=== PATIENT | male | born 1980 | race Two or more races ===

== ENCOUNTER 2017-02-12 16:39 | Emergency (ER) | payer OTHER ==
[2017-02-12 17:27] VITALS: BP 158/93
--- NOTE | 2017-02-12 17:39 | XRAY Preliminary Report ---
Exam: XR Shoulder 3 View LT IMPRESSION: 1. No definite acute abnormality. 2. Mild a. C. Joint degenerative disease. [facility] SITE ID: [id number]
--- NOTE | 2017-02-12 17:42 | XRAY Report ---
EXAM: LEFT SHOULDER RADIOGRAPHY EXAM DATE: 02/12/2017 04:51 PM. CLINICAL HISTORY: Injury, limited rom. COMPARISON: None. TECHNIQUE: 3 views. FINDINGS: Bones: Normal. No fracture or bone lesion. Joints: The glenohumeral and acromioclavicular joints are normally aligned. Mild acromioclavicular aurora int degenerative disease.. Soft tissues: The visualized hemithorax is unremarkable. No soft tissue swelling. IMPRESSION: 1. No definite acute abnormality. 2. Mild a. C. Joint degenerative disease. [facility] Referring Provider Line: [phone] SITE ID: [id number]
[2017-02-12] MEDS ORDERED: DEXAMETHASONE 10 MG/ML VIAL PO STA (17:54)
--- NOTE | 2017-02-12 17:58 | ED Physician Documentation ---
PD HPI UPPER EXT INJURY - Stated complaint Stated Complaint: LT SHOULDER PX - Chief complaint Chief Complaint: Trauma Ext - History obtained from History obtained from: Patient, Family - History of Present Illness Location: Left, Shoulder Type of injury: Fall Where injury occurred: [place] Timing - onset: Today Timing - duration: Hours Timing - details: Abrupt onset, Still present Improved by: Rest, Immobilization Worsened by: Moving, Palpating Associated symptoms: No: Weakness, Numbness, Tingling Contributing factors: No: Anticoagulated Similar symptoms before: Has not had sx before Recently seen: Not recently seen - Additonal information Additional information: 36 y/o male was hiking at [facility] and fell on the trail onto an outstretched hand. He felt the forces in the left shoulder and felt that the shoulder " popped out" and he went to a pole and grabbed the pole and was able to reduce the dislocation. He has some persistent pain in the anterior shoulder that is worse if he tries to move the shoulder and about a 5/10 at rest. Review of Systems Constitutional: denies: Fever Eyes: denies: Decreased vision Ears: denies: Ear pain Nose: denies: Congestion Throat: denies: Sore throat Cardiac: denies: Chest pain / pressure Respiratory: denies: Cough GI: denies: Vomiting : denies: Dysuria Skin: denies: Rash Musculoskeletal: reports: Joint pain. denies: Neck pain, Back pain, Extremity swelling Neurologic: denies: Generalized weakness, Focal weakness, Numbness PD PAST MEDICAL HISTORY - Past Medical History Past Medical History: Yes : Kidney stones - Past Surgical History Past Surgical History: Yes - Present Medications Home Medications: Ambulatory Orders Medication Instructions Recorded Confirmed No Known Home Medications [No 02/12/17 02/12/17 Known Home Medications] - Allergies Allergies/Adverse Reactions: Allergies Allergy/AdvReac Type Severity Reaction Status Date / Time No Known Drug Allergies Allergy Verified 02/12/17 16:44 - Social History Does the pt smoke?: No Smoking Status: Never smoker - Immunizations Immunizations are current?: Yes PD ED PE NORMAL - Vitals Vital signs reviewed: Yes (hypertensive and tachycardic) - General General: Alert and oriented X 3, Well developed/nourished, Other (The patient has an ice bag on his shoulder and a grimmace of pain on his face. ) - HEENT HEENT: Atraumatic, PERRL - Neck Neck: Supple, no meningeal sign, No bony TTP - Respiratory Respiratory: No respiratory distress - Derm Derm: Normal color, Warm and dry, No rash - Extremities Extremities: No deformity, No edema, Other (There is tenderness maximally over the anterior deltoid and not over the A/C joint. He is able to move the arm through a ROM with pain and he is able to hold the shoulder in abduction. distal n/v intact ) - Neuro Neuro: Alert and oriented X 3, No motor deficit, No sensory deficit, Normal speech - Psych Psych: Normal mood, Normal affect Results - Vitals Vitals: Vital Signs - 24 hr 02/12/17 02/12/17 16:41 17:21 Temperature 37.2 C 36.9 C Heart Rate 102 H 94 Respiratory 20 18 Rate Blood Pressure 155/95 H 158/93 H O2 Saturation 94 95 Oxygen O2 Source Room air - Rads (name of study) left shoulder Radiology: Prelim report reviewed (Impression: 1. No definite acute abnormality. 2. Mild a.c. joint degenerative disease.), EMP read indepedently, See rad report PD MEDICAL DECISION MAKING - ED course Complexity details: reviewed results, re-evaluated patient, considered differential, d/w patient, d/w family ED course: 36 y /o male with a history consistent with a dislocation and spontaneous reduction of the left shoulder is placed into a sling. Departure - Departure Disposition: 01 Home, Self Care Clinical Impression: Shoulder joint dislocation Qualifiers: Encounter type: initial encounter Laterality: left Qualified Code(s): S43.005A - Unspecified dislocation of left shoulder joint, initial encounter Condition: Stable Instructions: ED Immobilizer Shoulder, ED Dislocation Shoulder Redu Follow-Up: [facility] [Provider Group]
[2017-02-12] MEDS ORDERED: DEXAMETHASONE 10 MG/ML VIAL ONE (18:01)
[2017-02-12] MEDS ORDERED: CHERRY SYRUP 10 ML UDC PO ONE (18:01)
== END 2017-02-12 18:25 | disposition home or self-care (01) ==
LOC: ED 16:39
DX: S43.005A Unspecified dislocation of left shoulder joint, initial encounter (principal); W19.XXXA Unspecified fall, initial encounter; Y93.01 Activity, walking, marching and hiking; Y92.830 Public park as the place of occurrence of the external cause
CPT/HCPCS: 73030; 99283; A9270